=== PATIENT | female | born 1950 | race Caucasian/White ===

== ENCOUNTER 2021-01-29 09:41 | Inpatient (IN) | payer MEDICARE ==
[2021-01-29] MEDS ORDERED: NALOXONE 0.4 MG/ML 1 ML VIAL IV PRN ×2 (10:16→17:26)
--- NOTE | 2021-01-29 10:21 | ED ---
Recheck HPI - General Chief Complaint: Recheck/Abnormal Lab/Rx Stated Complaint: Abnormal labs Time Seen by Provider: 01/29/21 09:44 Source: patient, EMS, RN notes reviewed, old records reviewed Mode of arrival: EMS Limitations: no limitations - History of Present Illness Initial Comments: This is a 71-year-old female DF patient accepted in transfer for inpatient admission. Patient was told low sodium low magnesium potassium. Swallows monitored in attempted placed without significant success at [facility]. Patient presents to our ER for reevaluation. Patient has no new complaints noted states she was having chills and shakes prior in the day and mental presented her to [facility] in the first place. Currently no nausea vomiting or diarrhea MD Complaint: abnormal lab (Electrolyte abnormalities) -: unknown Returns Today for: Called Because of Abnormal Lab/Test Symptoms Since Prior Visit: worsening pain Context: called for abnormal lab result Associated Symptoms: none Treatments Prior to Arrival: other (No help with IV electronically replacement) - Related Data Allergies Allergy/AdvReac Type Severity Reaction Status Date / Time No Known Allergies Allergy Verified 01/29/21 09:57 Review of Systems ROS Statement: Those systems with pertinent positive or pertinent negative responses have been documented in the HPI. ROS Other: All systems not noted in ROS Statement are negative. Past Medical History Past Medical History: Hypertension, Osteoarthritis (OA) History of Any Multi-Drug Resistant Organisms: None Reported Additional Past Surgical History / Comment(s): Neck surgery 2016 Past Psychological History: Depression Smoking Status: Current every day smoker Past Alcohol Use History: Daily, Heavy General Exam General appearance: alert, in no apparent distress Head exam: Present: atraumatic, normocephalic, normal inspection Eye exam: Present: normal appearance, PERRL, EOMI. Absent: scleral icterus, conjunctival injection, periorbital swelling ENT exam: Present: normal exam, mucous membranes moist Neck exam: Present: normal inspection. Absent: tenderness, meningismus, lymphadenopathy Respiratory exam: Present: normal lung sounds bilaterally. Absent: respiratory distress, wheezes, rales, rhonchi, stridor Cardiovascular Exam: Present: regular rate, normal rhythm, normal heart sounds. Absent: systolic murmur, diastolic murmur, rubs, gallop, clicks GI/Abdominal exam: Present: soft, normal bowel sounds. Absent: distended, tenderness, guarding, rebound, rigid Extremities exam: Present: normal inspection, full ROM, normal capillary refill. Absent: tenderness, pedal edema, joint swelling, calf tenderness Back exam: Present: normal inspection Neurological exam: Present: alert, oriented X3, CN II-XII intact Psychiatric exam: Present: normal affect, normal mood Skin exam: Present: warm, dry, intact, normal color. Absent: rash Course Vital Signs 01/29/21 09:48 Temperature 99.4 F Pulse Rate 73 Respiratory 18 Rate Blood Pressure 127/73 O2 Sat by Pulse 96 Oximetry - Reevaluation(s) Reevaluation #1: 01/29/21 10:19 Medical record is reviewed 01/29/21 10:19 Transferring paperwork is been reviewed and I did speak with transferring physician Reevaluation #2: 01/29/21 10:19 Spoke with patient regarding our findings and plan, questions answered - Consultations Consultation #1: spoke w SOund ok for admission Disposition Clinical Impression: Hyponatremia, Weakness, Electrolyte abnormality, Hypomagnesemia, Hypokalemia Disposition: ADMITTED IP TO THIS HOSP Condition: Fair Is patient prescribed a controlled substance at d/c from ED?: No Referrals: Bry Smith DO [Primary Care Provider] - 1-2 days
[2021-01-29] MEDS: SODIUM CHLORIDE 0.9% 1,000 ML IV SCH ×2 (10:37→17:22)
[2021-01-29 10:46] LABS: Basophils % (A) 1 %; Eosinophils # (A) 0.1 k/uL (0-0.7); Eosinophils % (A) 2 %; HCT 37.1 % (34.0-46.0); HGB 12.6 gm/dL (11.4-16.0); Lymphocytes # (A) 1.8 k/uL (1.0-4.8); Lymphocytes % (A) 26 %; MCH 32.6 pg (25.0-35.0); MCV 95.8 fL (80.0-100.0); Mean Platelet Volume 7.9; Monocytes # (A) 0.5 k/uL (0-1.0); Monocytes % (A) 7 %; Neutrophils # (A) 4.4 k/uL (1.3-7.7); Neutrophils % (A) 64 %; Platelet Count 220 k/uL (150-450); RBC 3.87 m/uL (3.80-5.40); RDW 13.3 % (11.5-15.5); WBC 6.9 k/uL (3.8-10.6)
[2021-01-29 10:50] LABS: African American GFR (CKD) >90 (>60 ml/min/1.73 sqM); Anion Gap 11 mmol/L; Blood Urea Nitrogen 5 mg/dL (7-17); Carbon Dioxide 28 mmol/L (22-30); Chloride 86 mmol/L (98-107); Glucose 93 mg/dL (74-99); Magnesium 2.1 mg/dL (1.6-2.3); Non-African American GFR(CKD) 89 (>60 ml/min/1.73 sqM); Phosphorus 2.9 mg/dL (2.5-4.5); Potassium 3.4 mmol/L (3.5-5.1); Sodium 125 mmol/L (137-145)
--- NOTE | 2021-01-29 17:46 | P.HPIM ---
History of Present Illness H&P Date: 01/29/21 Chief Complaint: shaking 71-year-old female presented from an outside hospital at [place] for not feeling well, inability to eat or drink much, vomiting and diarrhea as well as abdominal bloating over the past couple of days. Patient states that last night she had a slight fever, was very shaky and could not get comfortable. She also reported some streaks of blood with her bowel movement which she thinks due to her hemorrhoids. No hematemesis. She denied having chest pain, shortness of breath. Patient states that 2 months ago she had a similar presentation and was diagnosed with bowel infection and according to her she was started on flagyl last by her primary care physician due to ''lingering bowel infection'' patient also stated that 2 months ago when she had the bowel infection she was told that she had low sodium low and potassium. Patient was given IV fluids at [facility] but without significant improvement in her sodium. During her ER stay she had a large dark and loose bowel movement according to the nursing report. Of note patient received her second dose of Covid vaccine 8 days ago. Labs at the outside ER showed sodium 122. Labs also showed hypokalemia with K at 3 and hypomagnesemia with magnesium at 1.5. Troponin, lactic acid, CRP, pro calcitonin were all negative. She also tested negative for influenza A and B an d Covid 19. She had computed tomography scan of the abdomen and pelvis that did not show any acute intra-abdominal process. In the emergency department repeat sodium level was 125, potassium 3.3. Patient is currently feeling better, no shaking and she does not feel nauseous. Patient presents to our ER for reevaluation. Patient has no new complaints noted states she was having chills and shakes prior in the day and mental presented her to [place] in the first place. Currently no nausea vomiting or diarrhea. Review of Systems Complete review of system performed, pertinent positives per HPI, otherwise negative Past Medical History Past Medical History: Hypertension, Osteoarthritis (OA) History of Any Multi-Drug Resistant Organisms: None Reported Additional Past Surgical History / Comment(s): Neck surgery 2016 Past Psychological History: Depression Smoking Status: Current every day smoker Past Alcohol Use History: Daily, Heavy Medications and Allergies Home Medications Medication Instructions Recorded Confirmed Type Clobeetasol 0.05% Solution 1 applic TOPICAL DAILY 01/29/21 01/29/21 History Hydrocortisone 2.5% Lotion 1 applic TOPICAL BID 01/29/21 01/29/21 History Ketoconazole [Ketoconazole 2% 1 applic TOPICAL Q3D 01/29/21 01/29/21 History Shampoo] L.acidoph,Paracasei, B.lactis 1 cap PO DAILY 01/29/21 01/29/21 History [Probiotic] Lisinopril-Hctz 20-12.5 mg 1 tab PO DAILY 01/29/21 01/29/21 History [Zestoretic 20-12.5] Multivitamins, Thera [Multivitamin 1 tab PO DAILY 01/29/21 01/29/21 History (formulary)] Nitroglycerin Oint [Nitro-Bid Oint] 1 inch RECTAL BID 01/29/21 01/29/21 History Potassium Chloride 10 meq PO BID 01/29/21 01/29/21 History Potassium Gluconate 99 mg PO DAILY 01/29/21 01/29/21 History Rosuvastatin [Crestor] 20 mg PO HS 01/29/21 01/29/21 History busPIRone HCl [Buspar] 10 mg PO BID 01/29/21 01/29/21 History metroNIDAZOLE [Flagyl] 500 mg PO BID 01/29/21 01/29/21 History Allergies Allergy/AdvReac Type Severity Reaction Status Date / Time No Known Allergies Allergy Verified 01/29/21 11:04 Physical Exam Vitals: Vital Signs Temp Pulse Resp BP Pulse Ox 01/29/21 15:18 86 18 130/83 95 01/29/21 09:48 99.4 F 73 18 127/73 96 Intake and Output 01/29/21 01/29/21 01/29/21 06:59 14:59 22:59 Other: Weight 66.678 kg Constitutional: No acute distress, conversant, pleasant Eyes:Anicteric sclerae, moist conjunctiva, no lid-lag, PERRLA, ENMT: Oropharynx clear, no erythema, exudates Neck: Supple, FROM, no masses, or JVD, No carotid bruits, No thyromegaly Lungs: Clear to auscultation, Clear to percussion, Normal respiratory effort, no accessory muscle use Cardiovascular: Heart regular in rate and rhythm, No murmurs, gallops, or rubs, No peripheral edema Abdominal: Soft, Nontender, no guarding, rebound or rigidity, Normoactive bowel sounds, No hepatomegaly, No splenomegaly, No palpable mass Skin: Normal temperature, tone, texture, turgor, no induration, No subcutaneous nodules, No rash, lesions, No ulcers Extremities: No digital cyanosis, No clubbing, Pedal pulses intact and symmetrical, Radial pulses intact and symmetrical, No calf tenderness Psychiatric: Alert and oriented to person, place and time, appropriate affect, intact judgement Neuro: Muscles Strength 5/5 in all 4 extremities, Sensation to light touch grossly present throughout, Cranial nerves II-XII grossly intact, no focal sensory deficits Results CBC & Chem 7: 01/29/21 10:31 01/29/21 10:31 Labs: Abnormal Lab Results - Last 24 Hours (Table) 01/29/21 Range/Units 10:31 Sodium 125 L (137-145) mmol/L Potassium 3.4 L (3.5-5.1) mmol/L Chloride 86 L (98-107) mmol/L BUN 5 L (7-17) mg/dL Assessment and Plan Plan: Acute hyponatremia Check plasma and urine osmolalities Check urine sodium IV fluids Hypokalemia and hypomagnesemia Replace and follow Acute gastroenteritis IV fluids as above Tylenol when necessary GI consult due to bleeding history Hypertension, HCTZ Continue lisinopril Anxiety and depression Continue buspirone Admitted to inpatient, expected length of stay more than 2 midnights
[2021-01-29] MEDS: lisinopriL 20 MG TAB PO SCH (18:46)
[2021-01-29] MEDS: ATORVASTATIN 40 MG TAB PO SCH (21:35)
[2021-01-29] MEDS: busPIRone HCl 10 MG TAB PO SCH (21:35)
[2021-01-29] MEDS: ZOLPIDEM 5 MG TAB PO SCH (21:36)
[2021-01-30] MEDS: SODIUM CHLORIDE 0.9% 1,000 ML IV SCH ×2 (04:30→12:45)
[2021-01-30 08:04] LABS: Basophils # (A) 0.1 k/uL (0-0.2); Basophils % (A) 1 %; Eosinophils # (A) 0.1 k/uL (0-0.7); Eosinophils % (A) 2 %; HCT 33.3 % (34.0-46.0); HGB 11.9 gm/dL (11.4-16.0); Lymphocytes # (A) 2.2 k/uL (1.0-4.8); Lymphocytes % (A) 41 %; MCH 34.1 pg (25.0-35.0); MCHC 35.7 g/dL (31.0-37.0); MCV 95.5 fL (80.0-100.0); Monocytes # (A) 0.5 k/uL (0-1.0); Monocytes % (A) 9 %; Neutrophils # (A) 2.4 k/uL (1.3-7.7); Neutrophils % (A) 45 %; Platelet Count 202 k/uL (150-450); RBC 3.49 m/uL (3.80-5.40); RDW 12.7 % (11.5-15.5); WBC 5.3 k/uL (3.8-10.6)
[2021-01-30 08:10] LABS: ALT 28 U/L (4-34); AST 35 U/L (14-36); African American GFR (CKD) >90 (>60 ml/min/1.73 sqM); Albumin 3.6 g/dL (3.5-5.0); Albumin/Globulin Ratio 1.6; Alkaline Phosphatase 53 U/L (38-126); Anion Gap 7 mmol/L; Blood Urea Nitrogen 8 mg/dL (7-17); Calcium 8.9 mg/dL (8.4-10.2); Carbon Dioxide 29 mmol/L (22-30); Chloride 93 mmol/L (98-107); Globulin 2.3 g/dL; Glucose 114 mg/dL (74-99); Magnesium 1.8 mg/dL (1.6-2.3); Non-African American GFR(CKD) 89 (>60 ml/min/1.73 sqM); Phosphorus 3.1 mg/dL (2.5-4.5); Potassium 3.7 mmol/L (3.5-5.1); Sodium 129 mmol/L (137-145); Total Bilirubin 0.7 mg/dL (0.2-1.3); Total Protein 5.9 g/dL (6.3-8.2)
[2021-01-30] MEDS: lisinopriL 20 MG TAB PO SCH (08:52)
[2021-01-30] MEDS: busPIRone HCl 10 MG TAB PO SCH ×2 (08:52→20:27)
[2021-01-30] MEDS: ACETAMINOPHEN TAB 325 MG TAB PO PRN (10:00)
--- NOTE | 2021-01-30 15:06 | P.PN ---
Subjective Progress Note Date: 01/30/21 Principal diagnosis: weakness and shaking Doing better today. She is feeling stronger. No pain or sob. Objective - Vital Signs Vital signs: Vital Signs Temp 98.0 F 01/30/21 12:32 Pulse 67 01/30/21 12:32 Resp 16 01/30/21 12:32 BP 131/79 01/30/21 12:32 Pulse Ox 97 01/30/21 12:32 Intake & Output 01/29/21 01/30/21 01/30/21 18:59 06:59 18:59 Weight 66.678 kg Other: # Voids 1 # Bowel Movements 1 - Exam Constitutional: No acute distress, conversant, pleasant Eyes:Anicteric sclerae, moist conjunctiva, no lid-lag, PERRLA, ENMT: Oropharynx clear, no erythema, exudates Neck: Supple, FROM, no masses, or JVD, No carotid bruits, No thyromegaly Lungs: Clear to auscultation, Clear to percussion, Normal respiratory effort, no accessory muscle use Cardiovascular: Heart regular in rate and rhythm, No murmurs, gallops, or rubs, No peripheral edema Abdominal: Soft, Nontender, no guarding, rebound or rigidity, Normoactive bowel sounds, No hepatomegaly, No splenomegaly, No palpable mass Skin: Normal temperature, tone, texture, turgor, no induration, No subcutaneous nodules, No rash, lesions, No ulcers Extremities: No digital cyanosis, No clubbing, Pedal pulses intact and symmetrical, Radial pulses intact and symmetrical, No calf tenderness Psychiatric: Alert and oriented to person, place and time, appropriate affect, intact judgement Neuro: Muscles Strength 5/5 in all 4 extremities, Sensation to light touch grossly present throughout, Cranial nerves II-XII grossly intact, no focal sensory deficits - Labs CBC & Chem 7: 01/30/21 07:13 01/30/21 07:13 Labs: Abnormal Lab Results - Last 24 Hours (Table) 01/29/21 01/30/21 01/30/21 Range/Units 10:31 07:13 07:13 RBC 3.49 L (3.80-5.40) m/uL Hct 33.3 L (34.0-46.0) % Sodium 129 L (137-145) mmol/L Chloride 93 L (98-107) mmol/L Glucose 114 H (74-99) mg/dL Osmolality 262 L (280-301) mosm/kg Total Protein 5.9 L (6.3-8.2) g/dL Assessment and Plan Plan: Acute hyponatremia likely sec to dehydration vs. HCTZ use Improved. Plasma and urine osmolalities not consistent with SIADH Continue IV fluids Hypokalemia and hypomagnesemia Replace and follow Acute gastroenteritis IV fluids as above Tylenol when necessary GI consult due to bleeding history Hypertension, Hold HCTZ due to above Continue lisinopril Anxiety and depression Continue buspirone Anticipated discharge tomorrow Disposition home.
[2021-01-30] MEDS: ATORVASTATIN 40 MG TAB PO SCH (20:27)
[2021-01-30] MEDS: ZOLPIDEM 5 MG TAB PO SCH (20:27)
[2021-01-31] MEDS: ACETAMINOPHEN TAB 325 MG TAB PO PRN (01:45)
[2021-01-31] MEDS: SODIUM CHLORIDE 0.9% 1,000 ML IV SCH (01:47)
[2021-01-31 06:51] LABS: Basophils % (A) 1 %; Eosinophils # (A) 0.2 k/uL (0-0.7); Eosinophils % (A) 3 %; HGB 12.2 gm/dL (11.4-16.0); Lymphocytes # (A) 2.1 k/uL (1.0-4.8); Lymphocytes % (A) 28 %; MCH 33.9 pg (25.0-35.0); MCHC 34.8 g/dL (31.0-37.0); MCV 97.4 fL (80.0-100.0); Mean Platelet Volume 7.9; Monocytes # (A) 0.4 k/uL (0-1.0); Monocytes % (A) 5 %; Neutrophils # (A) 4.5 k/uL (1.3-7.7); Neutrophils % (A) 61 %; Platelet Count 204 k/uL (150-450); RBC 3.59 m/uL (3.80-5.40); RDW 12.7 % (11.5-15.5); WBC 7.4 k/uL (3.8-10.6)
[2021-01-31 07:10] LABS: African American GFR (CKD) >90 (>60 ml/min/1.73 sqM); Anion Gap 9 mmol/L; Blood Urea Nitrogen 6 mg/dL (7-17); Calcium 9.2 mg/dL (8.4-10.2); Carbon Dioxide 26 mmol/L (22-30); Chloride 96 mmol/L (98-107); Glucose 114 mg/dL (74-99); Magnesium 1.7 mg/dL (1.6-2.3); Non-African American GFR(CKD) >90 (>60 ml/min/1.73 sqM); Phosphorus 3.1 mg/dL (2.5-4.5); Potassium 3.9 mmol/L (3.5-5.1); Sodium 131 mmol/L (137-145)
--- NOTE | 2021-01-31 07:25 | P.CONS ---
History of Present Illness - Reason for Consult Consult date: 01/30/21 blood per rectum, diarrhea Requesting physician: Yousuf Heart - Chief Complaint nausea, decreased oral intake, abdominal pain - History of Present Illness 71-year-old female medical history significant for hypertension, dyslipidemia, and osteoarthritis who presented to the hospital due to complaints of decreased oral intake and nausea as well as abdominal pain. Patient had reported decreased appetite and oral intake. Episodes of nausea. Patient reports that symptoms have not been good over the past few months. She does report that her peak having episodes of diarrhea approximate 4-5 times per day, but that diarrhea is improved and currently she is having approximately 3 bowel movements daily. She does report that at some point she had stool testing and was treated with Flagyl. She reports with the diarrhea she noted some intermittent bright red blood per rectum. She states that her primary care physician to set her up for outpatient evaluation but is unsure if this is with the surgical service or gastroenterology for further evaluation. The patient states that she has had a colonoscopy in the remote past. More recently she has undergone stool testing for screening for malignant neoplasm of the colon. She also reports a remote EGD in association with her colonoscopy in the past. She feels that intermittent rectal bleeding is secondary to hemorrhoidal disease. She denies any prior history of peptic ulcer disease and reports that she only uses Tylenol for pain.the patient was found to have a depressed sodium on presentation currently 129. Other laboratory evaluation significant for WBC 5.3, hemoglobin 11.9, platelet count 202,000 with total bilirubin 0.7, alkaline phosphatase 53, AST 35 and ALT 28. Review of Systems REVIEW OF SYSTEMS: CONSTITUTIONAL: Denies any fevers, chills, weight change or fatigue. CARDIOVASCULAR: Denies any chest pain, palpitations high or low blood pressures RESPIRATORY: Denies any shortness of breath, hemoptysis or cough. GENITOURINARY: No dysuria or hematuria. MUSCULOSKELETAL: No weakness reported. SKIN: Denies any new rashes or lesions, jaundice or pallor. PSYCHIATRIC: Denies any depression or anxiety. NEUROLOGY: Denies headache, denies any new focal deficits. EARS/NOSE/THROAT: No recent hearing change, congestion, nasal discharge or sore throat. EYES: No pain in eyes, discharge or change in vision. GASTROINTESTINAL: As per HPI. Past Medical History Past Medical History: Hypertension, Osteoarthritis (OA) History of Any Multi-Drug Resistant Organisms: None Reported Additional Past Surgical History / Comment(s): Neck surgery 2016 Past Anesthesia/Blood Transfusion Reactions: No Reported Reaction Past Psychological History: Depression Smoking Status: Current every day smoker Past Alcohol Use History: Daily, Heavy Additional History: family history: Reviewed with the patient noncontributory to current medical presentation. Medications and Allergies Home Medications Medication Instructions Recorded Confirmed Type Clobeetasol 0.05% Solution 1 applic TOPICAL DAILY 01/29/21 01/29/21 History Hydrocortisone 2.5% Lotion 1 applic TOPICAL BID 01/29/21 01/29/21 History Ketoconazole [Ketoconazole 2% 1 applic TOPICAL Q3D 01/29/21 01/29/21 History Shampoo] L.acidoph,Paracasei, B.lactis 1 cap PO DAILY 01/29/21 01/29/21 History [Probiotic] Lisinopril-Hctz 20-12.5 mg 1 tab PO DAILY 01/29/21 01/29/21 History [Zestoretic 20-12.5] Multivitamins, Thera [Multivitamin 1 tab PO DAILY 01/29/21 01/29/21 History (formulary)] Nitroglycerin Oint [Nitro-Bid Oint] 1 inch RECTAL BID 01/29/21 01/29/21 History Potassium Chloride 10 meq PO BID 01/29/21 01/29/21 History Potassium Gluconate 99 mg PO DAILY 01/29/21 01/29/21 History Rosuvastatin [Crestor] 20 mg PO HS 01/29/21 01/29/21 History busPIRone HCl [Buspar] 10 mg PO BID 01/29/21 01/29/21 History metroNIDAZOLE [Flagyl] 500 mg PO BID 01/29/21 01/29/21 History Allergies Allergy/AdvReac Type Severity Reaction Status Date / Time No Known Allergies Allergy Verified 01/29/21 11:04 Physical Exam Vitals: Vital Signs Temp Pulse Pulse Resp BP BP Pulse Ox 01/30/21 04:30 98.9 F 83 16 140/71 96 01/29/21 20:00 98.8 F 73 17 136/79 96 01/29/21 18:00 97.9 F 76 16 144/83 96 01/29/21 15:18 86 18 130/83 95 Intake and Output 01/29/21 01/30/21 01/30/21 22:59 06:59 14:59 Other: # Voids 1 1 # Bowel Movements 1 On physical examination, patient appears comfortable in no apparent distress. HEAD: Normocephalic, atraumatic. EYES: No scleral icterus. No conjunctival injection. MOUTH: No lesions, tongue midline. NECK: Trachea midline, no gross abnormalities. CHEST: Clear to auscultation with no wheezing or rhonchi appreciated. HEART: Regular rate and rhythm. ABDOMEN: Soft, obese. Bowel sounds are positive. No organomegaly. No guarding or rigidity. EXTREMITIES: No pedal edema. SKIN: No rashes, no jaundice. NEUROLOGIC: Alert and oriented x3. No focal deficits. Results CBC & Chem 7: 01/31/21 06:26 01/31/21 06:26 Labs: Abnormal Lab Results - Last 24 Hours (Table) 01/29/21 01/29/21 01/30/21 Range/Units 10:31 10:31 07:13 RBC 3.49 L (3.80-5.40) m/uL Hct 33.3 L (34.0-46.0) % Sodium 125 L (137-145) mmol/L Potassium 3.4 L (3.5-5.1) mmol/L Chloride 86 L (98-107) mmol/L BUN 5 L (7-17) mg/dL Glucose (74-99) mg/dL Osmolality 262 L (280-301) mosm/kg Total Protein (6.3-8.2) g/dL 01/30/21 Range/Units 07:13 RBC (3.80-5.40) m/uL Hct (34.0-46.0) % Sodium 129 L (137-145) mmol/L Potassium (3.5-5.1) mmol/L Chloride 93 L (98-107) mmol/L BUN (7-17) mg/dL Glucose 114 H (74-99) mg/dL Osmolality (280-301) mosm/kg Total Protein 5.9 L (6.3-8.2) g/dL Assessment and Plan (1) Diarrhea Narrative/Plan: 71-year-old female with multiple medical comorbidities presenting for a constellation of symptoms including nausea and decreased oral intake. Patient found to be severely hyponatremic on presentation with sodium currently at 129. Patient had been having some diarrhea over the past few months currently this is improved with approximately 3 looser bowel movements daily. She does report intermittent bright red blood per rectum in association with diarrhea and believes this is secondary to hemorrhoids. She is scheduled for outpatient evaluation locally in [place]. She denies any abdominal pain. She has previously had EGD and colonoscopy but this is more remote. Unclear etiology, may be postinfectious this patient does report stool studies previously and being treated with Flagyl, cannot rule out microscopic colitis or other etiology. Nausea and decreased oral intake likely related to hyponatremia. Current Visit: Yes Status: Acute Code(s): R19.7 - DIARRHEA, UNSPECIFIED SNOMED Code(s): 89508727 (2) Nausea Current Visit: Yes Status: Acute Code(s): R11.0 - NAUSEA SNOMED Code(s): 125395873 (3) Blood per rectum Current Visit: Yes Status: Acute Code(s): K62.5 - HEMORRHAGE OF ANUS AND RECTUM SNOMED Code(s): 30893976 Plan: supportive care Okay for diet as tolerated Stool studies ordered, if negative okay for antidiarrheal as needed for diarrhea Continue correction of sodium level Other medical management per primary team Patient's hemoglobin has remained stable and okay for continued evaluation of symptoms of diarrhea and blood per rectum in the outpatient setting as scheduled, as the patient reports she has been referred her locally in [place] for further evaluation Thank you for allowing us to participate in the care of the patient, okay for discharge when otherwise medically stable
[2021-01-31] MEDS: busPIRone HCl 10 MG TAB PO SCH (08:13)
[2021-01-31] MEDS: lisinopriL 20 MG TAB PO SCH (08:13)
[2021-01-31 12:04] VITALS: BP 157/76; PULSE 65; RESP 17; TEMP 98.3
--- NOTE | 2021-01-31 14:40 | P.DS ---
Providers Date of admission: 01/29/21 10:16 Expected date of discharge: 01/31/21 Attending physician: Yousuf Heart Consults: 01/29/21 17:51 Consult Physician Routine Consulting Provider: Tano Wood Consult Reason/Comments: gi bleeding Do you want consulting provider notified?: Yes Primary care physician: [facility] Course: 71-year-old female presented from an outside hospital at [place] for not feeling well, inability to eat or drink much, vomiting and diarrhea as well as abdominal bloating over the past couple of days. Associated symptoms include f laila and chills. Patient was feeling very shaky and could not get comfortable. She also reported some streaks of blood with her bowel movement which she thinks due to her hemorrhoids. No hematemesis. She denied having chest pain, shortness of breath. Patient states that 2 months ago she had a similar presentation and was diagnosed with bowel infection and according to her she was started on flagyl last by her primary care physician due to ''lingering bowel infection'' patient also stated that 2 months ago when she had the bowel infection she was told that she had low sodium low and potassium. Patient was given IV fluids at [facility] but without significant improvement in her sodium. During her ER stay she had a large dark and loose bowel movement according to the nursing report. Of note patient received her second dose of Covid vaccine 8 days ago. Labs at the outside ER showed sodium 122. Labs also showed hypokalemia with K at 3 and hypomagnesemia with magnesium at 1.5. Troponin, lactic acid, CRP, pro calcitonin were all negative. She also tested negative for influenza A and B and Covid 19. She had computed tomography scan of the abdomen and pelvis that did not show any acute intra-abdominal process. In the emergency department repeat sodium level was 125, potassium 3.3. Upon admission she was started on IV fluids, potassium and magnesium were replaced. Plasma and urine osmolalities were not consistent with SIADH. Dehydration was suspected as the cause for her symptoms. Patient is also taking HCTZ for blood pressure which would cause low electrolytes. HCTZ was discontinued upon discharge. Her symptoms improved. Diarrhea and vomiting resolved throughout the hospitalization. She did not have any fevers. She was also seen by GI due to some hematochezia which was thought to be secondary to hemorrhoids. No further workup by GI was advised as inpatient. Patient is currently stable for discharge. She will be discharged home in a stable condition. Patient Condition at Discharge: Fair Plan - Discharge Summary New Discharge Prescriptions: New lisinopriL [Zestril] 20 mg PO DAILY 30 Days #30 tab Continue Ketoconazole [Ketoconazole 2% Shampoo] 1 applic TOPICAL Q3D Hydrocortisone 2.5% Lotion 1 applic TOPICAL BID busPIRone HCl [Buspar] 10 mg PO BID Multivitamins, Thera [Multivitamin (formulary)] 1 tab PO DAILY Nitroglycerin Oint [Nitro-Bid Oint] 1 inch RECTAL BID Clobeetasol 0.05% Solution 1 applic TOPICAL DAILY Rosuvastatin [Crestor] 20 mg PO HS Potassium Gluconate 99 mg PO DAILY Potassium Chloride 10 meq PO BID L.acidoph,Paracasei, B.lactis [Probiotic] 1 cap PO DAILY Discontinued metroNIDAZOLE [Flagyl] 500 mg PO BID Lisinopril-Hctz 20-12.5 mg [Zestoretic 20-12.5] 1 tab PO DAILY Discharge Medication List Clobeetasol 0.05% Solution 1 applic TOPICAL DAILY 01/29/21 [History] Hydrocortisone 2.5% Lotion 1 applic TOPICAL BID 01/29/21 [History] Ketoconazole [Ketoconazole 2% Shampoo] 1 applic TOPICAL Q3D 01/29/21 [History] L.acidoph,Paracasei, B.lactis [Probiotic] 1 cap PO DAILY 01/29/21 [History] Multivitamins, Thera [Multivitamin (formulary)] 1 tab PO DAILY 01/29/21 [History] Nitroglycerin Oint [Nitro-Bid Oint] 1 inch RECTAL BID 01/29/21 [History] Potassium Chloride 10 meq PO BID 01/29/21 [History] Potassium Gluconate 99 mg PO DAILY 01/29/21 [History] Rosuvastatin [Crestor] 20 mg PO HS 01/29/21 [History] busPIRone HCl [Buspar] 10 mg PO BID 01/29/21 [History] lisinopriL [Zestril] 20 mg PO DAILY 30 Days #30 tab 01/31/21 [Rx] Follow up Appointment(s)/Referral(s): Nighat Galicia MD [STAFF PHYSICIAN] - As Needed Bry Smith DO [Primary Care Provider] - 1-2 days
--- NOTE | 2021-01-31 14:53 | P.PN ---
Subjective Progress Note Date: 01/31/21 Principal diagnosis: Abdominal pain, diarrhea There is a 71-year-old female patient who was transferred from [facility] for hyponatremia, nausea, and diarrhea with poor oral intake and abdominal pain. She states she has had frequent episodes of hyponatremia, every time she gets that she gets a decreased appetite, nausea, and diarrhea. She states she has not had any diarrhea since yesterday, actually today she states her stool was formed with some straining. She denies any blood in her stool or rectal bleeding. She denies any nausea or vomiting today. She is tolerating regular diet. Objective - Vital Signs Vital signs: Vital Signs Temp 98.5 F 01/31/21 05:00 Pulse 68 01/31/21 05:00 Resp 16 01/31/21 05:00 BP 168/90 01/31/21 05:00 Pulse Ox 96 01/31/21 05:00 Intake & Output 01/30/21 01/31/21 01/31/21 18:59 06:59 18:59 Intake Total 1800 Balance 1800 Intake: Intake, IV Titration 960 Amount Sodium Chloride 0.9% 1, 960 000 ml @ 80 mls/hr IV . [id number] JACK Rx#:[id number] Oral 840 Other: # Voids 2 2 # Bowel Movements 0 - Exam General appearance: The patient is alert, oriented, appears in no acute distress. HET: Head is normocephalic and atraumatic. Conjunctiva pink. Sclera anicteric. Neck: Supple without lymphadenopathy. Abdomen: Soft, nontender, nondistended with bowel sounds. No guarding or rigidity. Extremities: Normal skin color and turgor. No pedal edema Skin: No rashes, no jaundice Neurological: No focal deficits. Alert and oriented 3. - Labs CBC & Chem 7: 01/31/21 06:26 01/31/21 06:26 Labs: Abnormal Lab Results - Last 24 Hours (Table) 01/31/21 01/31/21 Range/Units 06:26 06:26 RBC 3.59 L (3.80-5.40) m/uL Sodium 131 L (137-145) mmol/L Chloride 96 L (98-107) mmol/L BUN 6 L (7-17) mg/dL Glucose 114 H (74-99) mg/dL Assessment and Plan (1) Diarrhea Narrative/Plan: 71-year-old female with multiple medical comorbidities presenting for a co nstellation of symptoms including nausea and decreased oral intake. Patient found to be severely hyponatremic on presentation with sodium currently at 129. Patient had been having some diarrhea over the past few months currently this is improved with approximately 3 looser bowel movements daily. She does report intermittent bright red blood per rectum in association with diarrhea and believes this is secondary to hemorrhoids. She is scheduled for outpatient evaluation locally in [place]. She denies any abdominal pain. She has previously had EGD and colonoscopy but this is more remote. Unclear etiology, may be postinfectious this patient does report stool studies previously and being treated with Flagyl, cannot rule out microscopic colitis or other etiology. Nausea and decreased oral intake likely related to hyponatremia. Patient has had no further diarrhea today. She is having formed stool, stool studies ordered and collected. Current Visit: Yes Status: Acute Code(s): R19.7 - DIARRHEA, UNSPECIFIED SNOMED Code(s): 50637578 (2) Blood per rectum Current Visit: Yes Status: Acute Code(s): K62.5 - HEMORRHAGE OF ANUS AND RECTUM SNOMED Code(s): 78002754 (3) Nausea Current Visit: Yes Status: Acute Code(s): R11.0 - NAUSEA SNOMED Code(s): 741492087 Plan: 1. Supportive care 2. Tinea diet is tolerated 3. Stool studies ordered 4. Continue correction of sodium level 5. Patient may be discharged home from a gastroenterology standpoint, discussed with patient to follow-up with gastroenterology as needed Thank you for this consultation. Dr. Sydni Galicia I agree with the dictator's note, documented as a scribe by Makayla Croft.
== END 2021-01-31 15:43 | disposition home or self-care (01) | DRG 641 ==
LOC: EC 09:41 → 5NMEDONC 10:16
PROVIDERS: ADMIT Internal Medicine; ATTEND Internal Medicine
DX: E86.0 Dehydration (principal); E83.42 Hypomagnesemia; E87.1 Hypo-osmolality and hyponatremia; I10 Essential (primary) hypertension; M19.90 Unspecified osteoarthritis, unspecified site; E87.6 Hypokalemia; F41.9 Anxiety disorder, unspecified; K52.9 Noninfective gastroenteritis and colitis, unspecified; F32.9 Major depressive disorder, single episode, unspecified; K64.9 Unspecified hemorrhoids; F17.200 Nicotine dependence, unspecified, uncomplicated; Z20.822 Contact with and (suspected) exposure to COVID-19; E78.5 Hyperlipidemia, unspecified
CPT/HCPCS: 36415; 80048; 80053; 83630; 83735; 83930; 83935; 84100; 84300; 85025; 87045; 87046; 87328; 87329; 99285

== ENCOUNTER 2024-04-01 16:48 | Inpatient (IN) | payer MEDICARE ==
[2024-04-01] MEDS ORDERED: NALOXONE 0.4 MG/ML 1 ML VIAL IV PRN (17:16)
--- NOTE | 2024-04-01 17:16 | ED ---
General Adult HPI - General Chief complaint: Chest Pain Stated complaint: Afib Time Seen by Provider: 04/01/24 16:50 Source: patient, RN/MD, EMS, RN notes reviewed, old records reviewed Mode of arrival: EMS Limitations: no limitations - History of Present Illness Initial comments: Patient is a 74-year-old female presenting to the emergency department as a transfer from [place] for syncope and A-fib. Patient does have history of A- fib. Patient states her heart rate has been high recently. Patient is on Eliquis at home secondary to atrial fibrillation. Patient denies chest pain. Patient states she just passed out for a short period of time and actually woke up before she completely fell. No injury. Reports reviewed from [facility]. - Related Data Home Medications Medication Instructions Recorded Confirmed Clobeetasol 0.05% Solution 1 applic TOPICAL DAILY 01/29/21 01/29/21 Hydrocortisone 2.5% Lotion 1 applic TOPICAL BID 01/29/21 01/29/21 Ketoconazole [Ketoconazole 2% 1 applic TOPICAL Q3D 01/29/21 01/29/21 Shampoo] L.acidoph,Paracasei, B.lactis 1 cap PO DAILY 01/29/21 01/29/21 [Probiotic] Multivitamins, Thera [Multivitamin 1 tab PO DAILY 01/29/21 01/29/21 (formulary)] Nitroglycerin Oint [Nitro-Bid Oint] 1 inch RECTAL BID 01/29/21 01/29/21 Potassium Chloride [Potassium 10 meq PO BID 01/29/21 01/29/21 Chloride ER] Potassium Gluconate [Potassium 99 mg PO DAILY 01/29/21 01/29/21 Gluconate ER] Rosuvastatin [Crestor] 20 mg PO HS 01/29/21 01/29/21 busPIRone HCl [Buspar] 10 mg PO BID 01/29/21 01/29/21 Previous Rx's Medication Instructions Recorded lisinopriL [Zestril] 20 mg PO DAILY 30 Days #30 tab 01/31/21 Allergies Allergy/AdvReac Type Severity Reaction Status Date / Time No Known Allergies Allergy Verified 01/29/21 11:04 Review of Systems ROS Statement: Those systems with pertinent positive or pertinent negative responses have been documented in the HPI. ROS Other: All systems not noted in ROS Statement are negative. Constitutional: Denies: fever Eyes: Denies: eye pain Respiratory: Denies: dyspnea Cardiovascular: Reports: palpitations. Denies: chest pain Endocrine: Denies: fatigue Past Medical History Past Medical History: Atrial Fibrillation, COPD, GERD/Reflux, GI Bleed, Hypertension, Osteoarthritis (OA) History of Any Multi-Drug Resistant Organisms: None Reported Additional Past Surgical History / Comment(s): Neck surgery 2016 Past Anesthesia/Blood Transfusion Reactions: No Reported Reaction Past Psychological History: Depression Smoking Status: Current every day smoker Past Alcohol Use History: Heavy Past Drug Use History: None Reported General Exam Limitations: no limitations General appearance: alert, in no apparent distress Head exam: Present: atraumatic Eye exam: Present: normal appearance, PERRL, EOMI Neck exam: Present: normal inspection Respiratory exam: Present: normal lung sounds bilaterally Cardiovascular Exam: Present: irregular rhythm GI/Abdominal exam: Present: soft. Absent: tenderness Extremities exam: Present: normal inspection. Absent: pedal edema, calf tenderness Neurological exam: Present: alert. Absent: motor sensory deficit Psychiatric exam: Present: normal affect, normal mood Skin exam: Present: normal color Course Vital Signs 04/01/24 04/01/24 16:55 17:07 Temperature 98.9 F Pulse Rate 79 Pulse Rate [ 85 Community Health Coordinator ] Respiratory 18 Rate Blood Pressure 118/78 O2 Sat by Pulse 98 Oximetry EKG Findings - EKG Results: EKG: interpreted by ERMD (Left axis. Low QRS voltage. Q wave V1 V2.), normal ST/T EKG shows: atrial fibrillation Medical Decision Making - Medical Decision Making Was pt. sent in by a medical professional or institution (, PA, ORGANIC LAB WORKER, urgent care, hospital, or longterm...) When possible be specific @ -Patient was sent in from [facility]. Did you speak to anyone other than the patient for history (EMS, parent, family, police, friend...)? What history was obtained from this source @ -I did speak with transferring physician Dr. Abel Did you review nursing and triage notes (agree or disagree)? Why? @ -I reviewed and agree with nursing and triage notes Were old charts reviewed (outside hosp., previous admission, EMS record, old EKG, old radiological studies, urgent care reports/EKG's, longterm records)? Report findings @ -Chart reviewed from [facility] Differential Diagnosis (chest pain, altered mental status, abdominal pain women, abdominal pain men, vaginal bleeding, weakness, fever, dyspnea, syncope, headache, dizziness, GI bleed, back pain, seizure, CVA, palpatations, mental health, musculoskeletal)? @ -Differential Syncope: Valvular disease, hypertrophic cardiomyopathy, pulmonary embolism, tamponade, tachycardia, bradycardia, OH, hypovolemia, hemorrhage, dissection, anemia, intracranial hemorrhage, seizure, hypoglycemia, carbon monoxide poisoning, this is not meant to be an all-inclusive list. EKG interpreted by me (3pts min.). @ -As above X-rays interpreted by me (1pt min.). @ -None done CT interpreted by me (1pt min.). @ -None done U/S interpreted by me (1pt. min.). @ -None done What testing was considered but not performed or refused? (CT, X-rays, U/S, labs)? Why? @ -Labs will be reordered secondary to history of electrolyte abnormality What meds were considered but not given or refused? Why? @ -None Did you discuss the management of the patient with other professionals (professionals i.e. , PA, ORGANIC LAB WORKER, lab, RT, psych nurse, social service worker, firearms inspector, teacher, aoc operations intelligence officer, case finisher)? Give summary @ -Case was discussed with Dr. cummings who will admit covering hospital call. Was smoking cessation discussed for >3mins.? @ -No Was critical care preformed (if so, how long)? @ -No Were there social determinants of health that impacted care today? How? (Homelessness, low income, unemployed, alcoholism, drug addiction, transportation, low edu. Level, literacy, decrease access to med. care, m[facility], rehab)? @ -No Was there de-escalation of care discussed even if they declined (Discuss DNR or withdrawal of care, Hospice)? DNR status @ -No What co-morbidities impacted this encounter? (DM, HTN, Smoking, COPD, CAD, Cancer, CVA, ARF, Chemo, Hep., AIDS, mental health diagnosis, sleep apnea, morbid obesity)? @ -None Was patient admitted / discharged? Hospital course, mention meds given and route, prescriptions, significant lab abnormalities, going to OR and other pertinent info. @ -Patient is updated on results and plan. Patient was transferred secondary to syncope and A-fib for cardiology care. Admission orders written. Cardiology will be placed on consult Undiagnosed new problem with uncertain prognosis? @ -No Drug Therapy requiring intensive monitoring for toxicity (Heparin, Nitro, Insulin, Cardizem)? @ -Patient is on Cardizem drip and this will be continued Were any procedures done? @ -No Diagnosis/symptom? @ -Syncope, A-fib with RVR Acute, or Chronic, or Acute on Chronic? @ -Acute, acute on chronic Uncomplicated (without systemic symptoms) or Complicated (systemic symptoms)? @ -Complicated with electrolyte abnormality Side effects of treatment? @ -No Exacerbation, Progression, or Severe Exacerbation? @ -No Poses a threat to life or bodily function? How? (Chest pain, [place], OH, pneumonia, PE, COPD, DKA, ARF, appy, cholecystitis, CVA, Diverticulitis, Homicidal, Suicidal, threat to staff... and all critical care pts) @ -No Disposition Clinical Impression: Syncope, Atrial fibrillation with RVR Disposition: ADMITTED IP TO THIS HOSP Is patient prescribed a controlled substance at d/c from ED?: No Referrals: Parviz Porter MD [Primary Care Provider] - 1-2 days Time of Disposition: 17:16
[2024-04-01] MEDS: DILTIAZEM 125 MG in SODIUM CHLORIDE 0.9% 100 ML IV SCH (17:29)
[2024-04-01] MEDS: SODIUM CHLORIDE 0.9% 1,000 ML IV SCH (17:30)
[2024-04-01 17:50] LABS: Basophils # (A) 0.1 k/uL (0-0.2); Basophils % (A) 2 %; Eosinophils # (A) 0.1 k/uL (0-0.7); Eosinophils % (A) 1 %; HCT 40.2 % (34.0-46.0); HGB 13.6 gm/dL (11.4-16.0); Lymphocytes # (A) 2.2 k/uL (1.0-4.8); Lymphocytes % (A) 46 %; MCH 33.4 pg (25.0-35.0); MCHC 33.9 g/dL (31.0-37.0); MCV 98.4 fL (80.0-100.0); Monocytes # (A) 0.5 k/uL (0-1.0); Monocytes % (A) 11 %; Neutrophils # (A) 1.7 k/uL (1.3-7.7); Neutrophils % (A) 37 %; Platelet Count 173 k/uL (150-450); RBC 4.08 m/uL (3.80-5.40); RDW 12.9 % (11.5-15.5); WBC 4.7 k/uL (3.8-10.6)
[2024-04-01 18:07] LABS: ALT 95 U/L (4-34); AST 102 U/L (14-36); African American GFR (CKD) 37 (>60 ml/min/1.73 sqM); Albumin 4.1 g/dL (3.5-5.0); Alkaline Phosphatase 70 U/L (38-126); Anion Gap 7 mmol/L; Blood Urea Nitrogen 21 mg/dL (7-17); Calcium 8.8 mg/dL (8.4-10.2); Carbon Dioxide 32 mmol/L (22-30); Chloride 87 mmol/L (98-107); Glucose 110 mg/dL (74-99); Non-African American GFR(CKD) 32 (>60 ml/min/1.73 sqM); Potassium 3.4 mmol/L (3.5-5.1); Sodium 126 mmol/L (137-145); Total Bilirubin 0.6 mg/dL (0.2-1.3); Total Protein 6.2 g/dL (6.3-8.2)
[2024-04-01] MEDS: FAMOTIDINE 20 MG TAB PO SCH (21:56)
[2024-04-01] MEDS: APIXABAN 5 MG TAB PO SCH (21:56)
[2024-04-01] MEDS: ATORVASTATIN 40 MG TAB PO SCH (21:57)
[2024-04-01] MEDS: MIRTAZAPINE 15 MG TAB PO SCH (21:57)
[2024-04-01] MEDS: carvediloL 12.5 MG TAB PO SCH (22:42)
[2024-04-02] MEDS: ACETAMINOPHEN TAB 325 MG TAB PO PRN (04:40)
[2024-04-02 08:08] LABS: Basophils % (A) 1 %; Eosinophils # (A) 0.1 k/uL (0-0.7); Eosinophils % (A) 2 %; HCT 39.5 % (34.0-46.0); HGB 13.1 gm/dL (11.4-16.0); Lymphocytes # (A) 1.9 k/uL (1.0-4.8); Lymphocytes % (A) 40 %; MCH 33.2 pg (25.0-35.0); MCHC 33.2 g/dL (31.0-37.0); MCV 99.7 fL (80.0-100.0); Mean Platelet Volume 9.3; Monocytes # (A) 0.5 k/uL (0-1.0); Monocytes % (A) 11 %; Neutrophils % (A) 42 %; Platelet Count 176 k/uL (150-450); RBC 3.96 m/uL (3.80-5.40); RDW 13.1 % (11.5-15.5); WBC 4.7 k/uL (3.8-10.6)
[2024-04-02] MEDS: SYMBICORT 80-4.5 MCG INHALER INHALATION SCH (08:22)
[2024-04-02] MEDS: IPRATROPIUM 0.5 MG/2.5 ML NEBU INHALATION SCH (08:22)
[2024-04-02 08:30] LABS: ALT 92 U/L (4-34); AST 90 U/L (14-36); African American GFR (CKD) 31 (>60 ml/min/1.73 sqM); Albumin 4.1 g/dL (3.5-5.0); Alkaline Phosphatase 67 U/L (38-126); Anion Gap 8 mmol/L; Blood Urea Nitrogen 23 mg/dL (7-17); Calcium 9.1 mg/dL (8.4-10.2); Carbon Dioxide 29 mmol/L (22-30); Chloride 91 mmol/L (98-107); Glucose 118 mg/dL (74-99); Non-African American GFR(CKD) 27 (>60 ml/min/1.73 sqM); Potassium 3.3 mmol/L (3.5-5.1); Sodium 128 mmol/L (137-145); Total Bilirubin 0.6 mg/dL (0.2-1.3); Total Protein 6.2 g/dL (6.3-8.2)
[2024-04-02] MEDS ORDERED: TRIAMTERENE-HCTZ 37.5-25MG 1 EACH CAP PO SCH (09:00)
[2024-04-02] MEDS ORDERED: POTASSIUM CHLORIDE ER 10 MEQ TAB.ER.PRT PO SCH (09:00)
[2024-04-02] MEDS: MAGNESIUM OXIDE 400 MG TAB PO SCH (09:10)
[2024-04-02] MEDS: PANTOPRAZOLE 40 MG TABLET PO SCH (09:10)
[2024-04-02] MEDS: FAMOTIDINE 20 MG TAB PO SCH (10:03)
--- NOTE | 2024-04-02 11:25 | P.HPIM ---
History of Present Illness H&P Date: 04/02/24 History of present illness; patient is a 74-year-old lady with past medical history significant for hyperlipidemia, atrial fibrillation who is a transfer from [facility] for a syncopal episode. Patient was initially presented to [facility] for syncopal episode. Patient stated that that she was all right when she woke up in the morning and had her coffee and as she was walking in her house she passed out, patient states that she only passed out for a short time. There was no complaint of any chest pain or shortness of prior to this episode. There was no complaint of palpitations. Patient history of A-fib and takes Eliquis at home. Patient did stated that for the last few days she has been feeling tired and got short of breath on exertion. Because of the syncopal episode, patient presented to the ER of [facility] and from there she was transferred to [facility] Initial lab work done in the ER showed WBC 4.7, hemoglobin 13.6, platelet count 173, sodium 126, potassium 3.4, anion gap 7, BUN 21, creatinine 1.57, glucose 110, AST 102, ALT 95 troponin 0.012, protein 6.2, albumin 4.1 EKG done in the ER showed heart rate of 85, no ST segment elevation or d epression seen, no T-wave inversions seen. Patient admitted to internal medicine service REVIEW OF SYSTEMS: CONSTITUTIONAL: No fever, no malaise, no fatigue. HEENT: No recent visual problems or hearing problems. Denied any sore throat. CARDIOVASCULAR: As mentioned HPI PULMONARY: As mentioned HPI GASTROINTESTINAL: No diarrhea, no nausea, no vomiting, no abdominal pain. NEUROLOGICAL: No headaches, no weakness, no numbness. HEMATOLOGICAL: Denies any bleeding or petechiae. GENITOURINARY: Denies any burning micturition, frequency, or urgency. MUSCULOSKELETAL/RHEUMATOLOGICAL: Denies any joint pain, swelling, or any muscle pain. ENDOCRINE: Denies any polyuria or polydipsia. The rest of the 14-point review of systems is negative. PHYSICAL EXAMINATION: GENERAL: The patient is alert and oriented x3, not in any acute distress. Well developed, well nourished. HEENT: Pupils are round and equally reacting to light. EOMI. No scleral icterus. No conjunctival pallor. Normocephalic, atraumatic. No pharyngeal erythema. No thyromegaly. CARDIOVASCULAR: S1 and S2 present. No murmurs, rubs, or gallops. PULMONARY: Chest is clear to auscultation, no wheezing or crackles. ABDOMEN: Soft, nontender, nondistended, normoactive bowel sounds. No palpable organomegaly. MUSCULOSKELETAL: No joint swelling or deformity. EXTREMITIES: No cyanosis, clubbing, or pedal edema. NEUROLOGICAL: Gross neurological examination did not reveal any focal deficits. SKIN: No rashes. Assessment and plan Syncope Chronic atrial fibrillation Bradycardia Hyponatremia Hypokalemia ANGIE Elevated LFTs Hypertension Hyper lipidemia Monitor vital signs Monitor CBC Monitor CMP Continue telemetry monitoring Trend troponin Ordered 2D echo Continue Eliquis Resume Coreg but hold for heart rate less than 60 Resume home meds Consult cardiology Labs and medication were reviewed.. Continue same treatment. Continue with symptomatic treatment. Resume home medication. Monitor labs and vitals. DVT and GI prophylaxis. Further recommendations as per clinical course of the patient Dictation was produced using [employer] dictation software. please excuse any grammatical, word or spelling errors. Past Medical History Past Medical History: Atrial Fibrillation, COPD, GERD/Reflux, GI Bleed, Hypertension, Osteoarthritis (OA) History of Any Multi-Drug Resistant Organisms: None Reported Additional Past Surgical History / Comment(s): Neck surgery 2016 Past Anesthesia/Blood Transfusion Reactions: No Reported Reaction Past Psychological History: Depression Smoking Status: Current every day smoker Past Alcohol Use History: Heavy Past Drug Use History: None Reported Medications and Allergies Home Medications Medication Instructions Recorded Confirmed Type Rosuvastatin [Crestor] 20 mg PO HS 01/29/21 04/01/24 History Albuterol Sulfate [Albuterol 1 - 2 puff PO RT-Q6H PRN 04/01/24 04/01/24 History Sulfate Hfa] Apixaban [Eliquis] 5 mg PO BID 04/01/24 04/01/24 History Famotidine [Pepcid] 20 mg PO BID 04/01/24 04/01/24 History Fluticasone/Umeclidin/Vilanter 1 puff INHALATION RT-DAILY 04/01/24 04/01/24 History [Trelegy Ellipta 100-62.5-25] Magnesium Oxide [Mag-Ox] 400 mg PO DAILY 04/01/24 04/01/24 History Mirtazapine [Remeron] 15 mg PO HS 04/01/24 04/01/24 History Pantoprazole Sodium [Protonix] 40 mg PO DAILY 04/01/24 04/01/24 History Potassium Chloride 10 meq PO DAILY 04/01/24 04/01/24 History Triamterene/Hydrochlorothiazid 1 tab PO DAILY 04/01/24 04/01/24 History [Triamterene-Hctz 37.5-25 mg Tb] carvediloL [Coreg] 25 mg PO BID 04/01/24 04/01/24 History Allergies Allergy/AdvReac Type Severity Reaction Status Date / Time No Known Allergies Allergy Verified 04/01/24 17:33 Physical Exam Vitals: Vital Signs Temp Pulse Pulse Resp BP Pulse Ox 04/02/24 09:05 97.9 F 56 L 18 131/56 97 04/02/24 08:33 66 04/02/24 08:24 64 04/02/24 04:00 57 L 16 125/75 95 04/02/24 03:00 60 17 100/48 95 04/02/24 01:00 62 18 120/61 95 04/02/24 00:00 55 L 18 109/66 95 04/01/24 23:00 58 L 17 125/72 95 04/01/24 22:00 55 L 18 114/90 95 04/01/24 21:59 52 L 16 94/52 97 04/01/24 20:00 62 16 90/46 97 04/01/24 18:15 97.7 F 101 H 16 75/47 96 04/01/24 17:35 84 16 99/84 97 04/01/24 17:07 85 04/01/24 16:55 98.9 F 79 18 118/78 98 Intake and Output 04/01/24 04/02/24 04/02/24 22:59 06:59 14:59 Intake Total 3.917 Balance 3.917 Intake: Intake, IV Titration 3.917 Amount Diltiazem 125 mg In 3.917 Sodium Chloride 0.9% 100 ml @ 5 MG/HR 5 mls/hr IV .Q24H [facility] Rx#:[id number] Other: Weight 70.307 kg Results CBC & Chem 7: 04/02/24 07:40 04/02/24 07:40 Labs: Abnormal Lab Results - Last 24 Hours (Table) 04/01/24 04/02/24 Range/Units 17:34 07:40 Sodium 126 L 128 L (137-145) mmol/L Potassium 3.4 L 3.3 L (3.5-5.1) mmol/L Chloride 87 L 91 L (98-107) mmol/L Carbon Dioxide 32 H (22-30) mmol/L BUN 21 H 23 H (7-17) mg/dL Creatinine 1.57 H 1.79 H (0.52-1.04) mg/dL Glucose 110 H 118 H (74-99) mg/dL AST 102 H 90 H (14-36) U/L ALT 95 H 92 H (4-34) U/L Total Protein 6.2 L 6.2 L (6.3-8.2) g/dL
--- NOTE | 2024-04-02 12:09 | P.CRDCN ---
History of Present Illness History of present illness: HISTORY OF PRESENT ILLNESS: This is a 74-year-old female with a past medical history significant for atrial fibrillation, hypertension, and hyperlipidemia. Patient does not follow with a director of blood. We have been asked to see the patient in consultation for atrial fibrillation and syncope. Patient examined at the bedside in the emergency room. Patient states yesterday she was drinking coffee in the morning and began to feel lightheaded. She also reports having nausea. She states that she got up and began walking and then had a syncopal episode. She does report having intermittent palpitations. At the time of examination, she denies any chest pain or pressure. She denies any shortness of breath. She does report that in January she had a change in her blood pressure medications by her doctor and [place]. She cannot remember the name of the medication that she was on but she was started on Triamterene-HCTZ at that time as she was having lower extremity edema. She states that she has also been on lisinopril and losartan many years ago. DIAGNOSTICS: - EKG reveals atrial fibrillation. Repeat EKG reveals sinus mechanism.. - Laboratory data: WBC 4.7. Hemoglobin 13.1. Platelet count 176. Sodium 128. Potassium 3.3. BUN 23. Creatinine 1.79. Troponin negative x 2 - Current home cardiac medications include Eliquis 5 mg twice a day, rosuvastatin 20 mg at night, carvedilol 25 mg twice a day. - No previous echocardiogram available in EMR for review REVIEW OF SYSTEMS: At the time of my exam: CONSTITUTIONAL: Denies fever or chills. HEENT: Denies blurred vision, vision changes, or eye pain. Denies hemoptysis CARDIOVASCULAR: Denies chest pain. Denies orthopnea. Denies PND. Denies palpitations RESPIRATORY: Denies shortness of breath. GASTROINTESTINAL: Denies abdominal pain. Denies nausea or vomiting. HEMATOLOGIC: Denies bleeding disorders. GENITOURINARY: Denies any blood in urine. SKIN: Denies pruitis. Denies rash. PHYSICAL EXAM: VITAL SIGNS: Reviewed. GENERAL: Well-developed in no acute distress. HEENT: Head is normocephalic. Pupils are equal, round. Sclerae anicteric. Mucous membranes of the mouth are moist. Neck supple. No JVD or thyromegaly LUNGS: Respirations even and unlabored. Lungs essentially clear to auscultation bilaterally. HEART: Regular rate and rhythm. S1 and S2 heard. ABDOMEN: Soft. Nondistended. Nontender. EXTREMITIES: Normal range of motion. No clubbing or cyanosis. Peripheral pulses intact. No lower extremity edema NEUROLOGIC: Awake and alert. Oriented x 3. ASSESSMENT: Lightheadedness with syncope Paroxysmal atrial fibrillation Acute kidney injury Hyponatremia Hypertension Hyperlipidemia PLAN: Obtain 2D echo to assess cardiac structure and function Check orthostatic blood pressures Check TSH Discontinue IV Cardizem Continue current dose of metoprolol Continue anticoagulation with Eliquis Discontinue Triamterene-HCTZ due to hyponatremia Continue to monitor blood pressures. If elevated, patient will need to be resumed on an MARIS/ARB tomorrow Further recommendations pending patient course Nurse practitioner note has been reviewed by physician. Signing provider agrees with the documented findings, assessment, and plan of care documented by BULLET CHARGING MACHINE OPERATOR as a scribe. Past Medical History Past Medical History: Atrial Fibrillation, COPD, GERD/Reflux, GI Bleed, Hyperte nsion, Osteoarthritis (OA) History of Any Multi-Drug Resistant Organisms: None Reported Additional Past Surgical History / Comment(s): Neck surgery 2016 Past Anesthesia/Blood Transfusion Reactions: No Reported Reaction Past Psychological History: Depression Smoking Status: Current every day smoker Past Alcohol Use History: Heavy Past Drug Use History: None Reported Medications and Allergies Home Medications Medication Instructions Recorded Confirmed Type Rosuvastatin [Crestor] 20 mg PO HS 01/29/21 04/01/24 History Albuterol Sulfate [Albuterol 1 - 2 puff PO RT-Q6H PRN 04/01/24 04/01/24 History Sulfate Hfa] Apixaban [Eliquis] 5 mg PO BID 04/01/24 04/01/24 History Famotidine [Pepcid] 20 mg PO BID 04/01/24 04/01/24 History Fluticasone/Umeclidin/Vilanter 1 puff INHALATION RT-DAILY 04/01/24 04/01/24 History [Trelegy Ellipta 100-62.5-25] Magnesium Oxide [Mag-Ox] 400 mg PO DAILY 04/01/24 04/01/24 History Mirtazapine [Remeron] 15 mg PO HS 04/01/24 04/01/24 History Pantoprazole Sodium [Protonix] 40 mg PO DAILY 04/01/24 04/01/24 History Potassium Chloride 10 meq PO DAILY 04/01/24 04/01/24 History Triamterene/Hydrochlorothiazid 1 tab PO DAILY 04/01/24 04/01/24 History [Triamterene-Hctz 37.5-25 mg Tb] carvediloL [Coreg] 25 mg PO BID 04/01/24 04/01/24 History Allergies Allergy/AdvReac Type Severity Reaction Status Date / Time No Known Allergies Allergy Verified 04/01/24 17:33 Physical Exam Vitals: Vital Signs Temp Pulse Pulse Resp BP Pulse Ox 04/02/24 04:00 57 L 16 125/75 95 04/02/24 03:00 60 17 100/48 95 04/02/24 01:00 62 18 120/61 95 04/02/24 00:00 55 L 18 109/66 95 04/01/24 23:00 58 L 17 125/72 95 04/01/24 22:00 55 L 18 114/90 95 04/01/24 21:59 52 L 16 94/52 97 04/01/24 20:00 62 16 90/46 97 04/01/24 18:15 97.7 F 101 H 16 75/47 96 04/01/24 17:35 84 16 99/84 97 04/01/24 17:07 85 04/01/24 16:55 98.9 F 79 18 118/78 98 Intake and Output 04/01/24 04/02/24 04/02/24 22:59 06:59 14:59 Intake Total 3.917 Balance 3.917 Intake: Intake, IV Titration 3.917 Amount Diltiazem 125 mg In 3.917 Sodium Chloride 0.9% 100 ml @ 5 MG/HR 5 mls/hr IV .Q24H [facility] Rx#:[id number] Other: Weight 70.307 kg Results 04/02/24 07:40 04/02/24 07:40 Cardiac Enzymes 04/01/24 04/01/24 04/01/24 Range/Units 17:34 17:34 20:41 AST 102 H (14-36) U/L Troponin I <0.012 <0.012 (0.000-0.034) ng/mL CBC 04/01/24 Range/Units 17:34 WBC 4.7 (3.8-10.6) k/uL RBC 4.08 (3.80-5.40) m/uL Hgb 13.6 (11.4-16.0) gm/dL Hct 40.2 (34.0-46.0) % Plt Count 173 (150-450) k/uL Comprehensive Metabolic Panel 04/01/24 Range/Units 17:34 Sodium 126 L (137-145) mmol/L Potassium 3.4 L (3.5-5.1) mmol/L Chloride 87 L (98-107) mmol/L Carbon Dioxide 32 H (22-30) mmol/L BUN 21 H (7-17) mg/dL Creatinine 1.57 H (0.52-1.04) mg/dL Glucose 110 H (74-99) mg/dL Calcium 8.8 (8.4-10.2) mg/dL AST 102 H (14-36) U/L ALT 95 H (4-34) U/L Alkaline Phosphatase 70 (38-126) U/L Total Protein 6.2 L (6.3-8.2) g/dL Albumin 4.1 (3.5-5.0) g/dL Current Medications Generic Name Dose Route Start Last Admin Trade Name Freq PRN Reason Stop Dose Admin Acetaminophen 650 mg 04/01/24 17:16 04/02/24 04:40 Acetaminophen Tab 325 Mg Tab PO 650 mg Q6HR PRN Administration Mild Pain or Fever > 100.5 Apixaban 5 mg 04/01/24 21:00 04/01/24 21:56 Apixaban 5 Mg Tab PO 5 mg BID JACK Administration Protocol Atorvastatin Calcium 40 mg 04/01/24 21:00 04/01/24 21:57 Atorvastatin 40 Mg Tab PO 40 mg HS JACK Administration Budesonide/Formoterol Fumarate 2 puff 04/02/24 08:00 Symbicort 80-4.5 Mcg Inhaler INHALATION RT-BID JACK Carvedilol 25 mg 04/01/24 21:00 04/01/24 22:42 Carvedilol 12.5 Mg Tab PO Not Given BID-W/MEALS JACK Famotidine 20 mg 04/01/24 21:00 04/01/24 21:56 Famotidine 20 Mg Tab PO 20 mg BID JACK Administration Diltiazem HCl 125 mg/ Sodium 125 mls @ 5 mls/hr 04/01/24 17:15 04/01/24 18:16 Chloride IV 0 mg/hr .Q24H JACK 0 mls/hr Infusion 5 MG/HR Sodium Chloride 1,000 mls @ 75 mls/hr 04/01/24 17:30 04/01/24 17:30 Saline 0.9% IV 75 mls/hr .[id number] JACK Administration Ipratropium [place] 0.5 mg 04/02/24 08:00 Ipratropium 0.5 Mg/2.5 Ml Nebu INHALATION RT-QID JACK Magnesium Oxide 400 mg 04/02/24 09:00 Magnesium Oxide 400 Mg Tab PO DAILY JACK Mirtazapine 15 mg 04/01/24 21:00 04/01/24 21:57 Mirtazapine 15 Mg Tab PO 15 mg HS JACK Administration Naloxone HCl 0.2 mg 04/01/24 17:16 Naloxone 0.4 Mg/Ml 1 Ml Vial IV Q2M PRN Opioid Reversal Pantoprazole Sodium 40 mg 04/02/24 09:00 Pantoprazole 40 Mg Tablet PO DAILY JACK Potassium Chloride 10 meq 04/02/24 09:00 Potassium Chloride Er 10 Meq Tab.Er.Prt PO DAILY JACK Triamterene/Hydrochlorothiazide 1 each 04/02/24 09:00 Triamterene-Hctz 37.5-25mg 1 Each Cap PO DAILY JACK Intake and Output 04/01/24 04/02/24 04/02/24 22:59 06:59 14:59 Intake Total 3.917 Balance 3.917 Intake: Intake, IV Titration 3.917 Amount Diltiazem 125 mg In 3.917 Sodium Chloride 0.9% 100 ml @ 5 MG/HR 5 mls/hr IV .Q24H [facility] Rx#:[id number] Other: Weight 70.307 kg 04/01/24 17:34 04/01/24 17:34
--- NOTE | 2024-04-02 16:58 | CA ---
Transthoracic Echo Report Name: Rosa Isela Marroquin Age: 74 Gender: F : 1950 Exam Date: 04/02/2024 14:24 Exam Location: [facility] Ht (in): 62 Wt (lb): 155 Ordering Physician: Emi Walker Attending/Referring Phys: [id number], Aaron Block Bolter Mule Operator Eloise Dallas RDCS Procedure CPT: Indications: LV function, AF Cardiac Hx: Technical Quality: Fair Contrast 1: Total Dose (mL): Contrast 2: Total Dose (mL): MEASUREMENTS (Male / Female) Normal Values 2D ECHO LV Diastolic Diameter PLAX 3.9 cm 4.2 - 5.9 / 3.9 - 5.3 cm LV Systolic Diameter PLAX 2.6 cm IVS Diastolic Thickness 0.9 cm 0.6 - 1.0 / 0.6 - 0.9 cm LVPW Diastolic Thickness 1.0 cm 0.6 - 1.0 / 0.6 - 0.9 cm LV Relative Wall Thickness 0.5 RV Internal Dim ED PLAX 2.8 cm LA Systolic Diameter LX 3.3 cm 3.0 - 4.0 / 2.7 - 3.8 cm LV Diastolic Volume MOD BP 62.6 cm??? 67 - 155 / 56 - 104 cm??? LV Systolic Volume MOD BP 28.7 cm??? 22 - 58 / 19 - 49 cm??? LV Ejection Fraction MOD BP 54.1 % >= 55 % LV Cardiac Index MOD BP 1030.9 cm???/min???m??? LV Diastolic Volume MOD 4C 62.6 cm??? LV Systolic Volume MOD 4C 26.9 cm??? LV Ejection Fraction MOD 4C 57.0 % LV Cardiac Index MOD 4C 1085.0 cm???/min???m??? LV Diastolic Length 4C 6.6 cm LV Systolic Length 4C 5.3 cm LV Diastolic Volume MOD 2C 63.2 cm??? LV Systolic Volume MOD 2C 29.9 cm??? LV Ejection Fraction MOD 2C 52.7 % LV Cardiac Index MOD 2C 1014.2 cm???/min???m??? LV Diastolic Length 2C 6.6 cm LV Systolic Length 2C 5.6 cm LA Volume 50.9 cm??? 18 - 58 / 22 - 52 cm??? LA Volume Index 28.7 cm???/m??? 16 - 28 cm???/m??? M-MODE Aortic Root Diameter MM 2.7 cm AV Cusp Separation MM 1.6 cm DOPPLER AV Peak Velocity 119.1 cm/s AV Peak Gradient 5.7 mmHg MV Area PHT 3.3 cm??? MV Deceleration Time 269.2 ms LV E' Lateral Velocity 7.0 cm/s LV E' Septal Velocity 6.0 cm/s TR Peak Velocity 280.8 cm/s TR Peak Gradient 31.5 mmHg Right Ventricular Systolic Press 36.5 mmHg FINDINGS Left Ventricle Left ventricular ejection fraction is estimated at 50-55 %. Left ventricular cavity size normal. Mildly decreased left ventricular ejection fraction. No obvious regional wall motion abnormalities. Right Ventricle Normal right ventricular size. Mild pulmonary hypertension. Right Atrium Normal right atrial size. No right atrial thrombus or mass seen. Left Atrium Normal left atrial size. No left atrial thrombus or mass present. Mitral Valve Structurally normal mitral valve. No mitral stenosis. No evidence for mitral valve prolapse. Trace to mild mitral regurgitation. Aortic Valve Trileaflet aortic valve. Thickened aortic valve without stenosis. Tricuspid Valve Structurally normal tricuspid valve. [id number] tricuspid regurgitation. Pulmonic Valve Pulmonic valve not well visualized. Pericardium No pericardial or pleural effusion. Aorta Normal size aortic root and proximal ascending aorta. CONCLUSIONS Left ventricular ejection fraction is estimated at 50-55 %. No obvious regional wall motion abnormalities. Normal RV size and function Mild pulmonary hypertension. RVSP 36 mmHg No significant left-sided valvular dysfunction. Moderate TR Previewed by: Dr Lopez Andre (Electronically Signed) Final Date: 02 Apr 2024 16:57
[2024-04-02 20:15] LABS: T4, Free (Free Thyroxine) 1.47 ng/dL (0.78-2.19)
[2024-04-02] MEDS: MELATONIN 5 MG TABLET PO SCH (20:46)
[2024-04-03 09:45] VITALS: TEMP 97.8
[2024-04-03] MEDS: lisinopriL 5 MG TAB PO SCH (10:29)
[2024-04-03 11:28] VITALS: BP 137/67; RESP 15
[2024-04-03 12:18] VITALS: PULSE 61
--- NOTE | 2024-04-03 13:01 | P.DS ---
Providers Date of admission: 04/03/24 09:57 Expected date of discharge: 04/03/24 Attending physician: Linda Henson Consults: 04/01/24 17:16 Consult Physician Urgent Consulting Provider: Josemanuel Moscoso Consult Reason/Comments: Syncope, A-fib with RVR Do you want consulting provider notified?: Yes Primary care physician: Parviz [facility] Course: Discharge diagnoses; Syncope Chronic atrial fibrillation Bradycardia Hyponatremia Hypokalemia ANGIE Elevated LFTs Hypertension Hyper lipidemia Hospital course; patient is a 74-year-old lady with past medical history significant for hyperlipidemia, atrial fibrillation who is a transfer from [facility] for a syncopal episode. Patient was initially presented to [facility] for syncopal episode. Patient stated that that she was all right when she woke up in the morning and had her coffee and as she was walking in her house she passed out, patient states that she only passed out for a short time. There was no complaint of any chest pain or shortness of prior to this episode. There was no complaint of palpitations. Patient history of A-fib and takes Eliquis at home. Patient did stated that for the last few days she has been feeling tired and got short of breath on exertion. Because of the syncopal episode, patient presented to the ER of [facility] and from there she was transferred to [facility] Initial lab work done in the ER showed WBC 4.7, hemoglobin 13.6, platelet count 173, sodium 126, potassium 3.4, anion gap 7, BUN 21, creatinine 1.57, glucose 110, AST 102, ALT 95 troponin 0.012, protein 6.2, albumin 4.1 EKG done in the ER showed heart rate of 85, no ST segment elevation or depression seen, no T-wave inversions seen. Patient admitted to internal medicine service 04/03. Patient seen and examined. Patient was evaluated by cardiology, they recommended discontinuing triamterene, HCTZ and added lisinopril. While in the hospital, patient is doing much better, patient bradycardia improved, her heart rates goes up to 70s on ambulation. Patient's renal also improved to 128, patient keen to be discharged home. Outpatient follow-up with cardiology PHYSICAL EXAMINATION: GENERAL: The patient is alert and oriented x3, not in any acute distress. Well developed, well nourished. HEENT: Pupils are round and equally reacting to light. EOMI. No scleral icterus. No conjunctival pallor. Normocephalic, atraumatic. No pharyngeal erythema. No thyromegaly. CARDIOVASCULAR: S1 and S2 present. No murmurs, rubs, or gallops. PULMONARY: Chest is clear to auscultation, no wheezing or crackles. ABDOMEN: Soft, nontender, nondistended, normoactive bowel sounds. No palpable organomegaly. MUSCULOSKELETAL: No joint swelling or deformity. EXTREMITIES: No cyanosis, clubbing, or pedal edema. NEUROLOGICAL: Gross neurological examination did not reveal any focal deficits. SKIN: No rashes. Dictation was produced using [employer] dictation software. please excuse any grammatical, word or spelling errors. Patient Condition at Discharge: Good Plan - Discharge Summary Discharge Rx Participant: No New Discharge Prescriptions: New lisinopriL [Zestril] 5 mg PO DAILY #90 tab Continue carvediloL [Coreg] 25 mg PO BID Pantoprazole Sodium [Protonix] 40 mg PO DAILY Famotidine [Pepcid] 20 mg PO BID Rosuvastatin [Crestor] 20 mg PO HS Mirtazapine [Remeron] 15 mg PO HS Apixaban [Eliquis] 5 mg PO BID Magnesium Oxide [Mag-Ox] 400 mg PO DAILY Albuterol Sulfate [Albuterol Sulfate Hfa] 1 - 2 puff PO RT-Q6H PRN PRN Reason: Shortness Of Breath Fluticasone/Umeclidin/Vilanter [Trelegy Ellipta 100-62.5-25] 1 puff INHALATION RT-DAILY Discontinued Triamterene/Hydrochlorothiazid [Triamterene-Hctz 37.5-25 mg Tb] 1 tab PO DAILY Potassium Chloride 10 meq PO DAILY Discharge Medication List Rosuvastatin [Crestor] 20 mg PO HS 01/29/21 [History] Albuterol Sulfate [Albuterol Sulfate Hfa] 1 - 2 puff PO RT-Q6H PRN 04/01/24 [History] Apixaban [Eliquis] 5 mg PO BID 04/01/24 [History] Famotidine [Pepcid] 20 mg PO BID 04/01/24 [History] Fluticasone/Umeclidin/Vilanter [Trelegy Ellipta 100-62.5-25] 1 puff INHALATION RT-DAILY 04/01/24 [History] Magnesium Oxide [Mag-Ox] 400 mg PO DAILY 04/01/24 [History] Mirtazapine [Remeron] 15 mg PO HS 04/01/24 [History] Pantoprazole Sodium [Protonix] 40 mg PO DAILY 04/01/24 [History] carvediloL [Coreg] 25 mg PO BID 04/01/24 [History] lisinopriL [Zestril] 5 mg PO DAILY #90 tab 04/03/24 [Rx] Follow up Appointment(s)/Referral(s): Neri Jacobson MD [STAFF PHYSICIAN] - 2 Weeks (Triamterene-hydrochlorothiazide stop Start lisinopril 5 mg p.o. daily Continue carvedilol 25 mg twice daily Continue rosuvastatin Continue Eliquis 5 mg twice daily) Parviz Porter MD [Primary Care Provider] - 1-2 days Discharge Disposition: HOME SELF-CARE
--- NOTE | 2024-04-03 15:38 | P.PN ---
Subjective Patient is doing well. She has not had any further episodes of dizziness and presyncope or chest pain or shortness of breath She is back in sinus rhythm Denies any chest discomfort dizziness or lightheadedness On examination blood pressure 137/67 mmHg pulse rate in the 70s No JVD Heart sounds are normal and regular Breath sounds are clear 2D echo Doppler study shows normal LV cavity size with mildly reduced LV systolic function of the lower limits of normal 50 to 55% Impression Paroxysmal atrial fibrillation with RVR Hyponatremia on triamterene-hydrochlorothiazide History of hypertension History of dyslipidemia This is the first diagnosis of paroxysmal atrial fibrillation with RVR Plan Continue carvedilol 25 mg twice daily Continue Eliquis 5 mg twice daily Add Zestril 5 mg daily at noon time May go home today and follow-up with Dr. Jacobson in about 2 weeks Further evaluation as an outpatient with ischemia workup, blood pressure management, continuation of Eliquis and rhythm control of atrial fibrillation Objective - Vital Signs Vital signs: Vital Signs Temp 97.8 F 04/03/24 09:41 Pulse 61 04/03/24 12:21 Resp 15 04/03/24 11:16 BP 137/67 04/03/24 11:16 Pulse Ox 96 04/03/24 11:16 FiO2 Intake & Output 04/02/24 04/03/24 04/03/24 18:59 06:59 18:59 Intake Total 722 Balance 722 Weight 70.307 kg Intake: IV 10 Invasive Line 3 10 Oral 712 Other: Voiding Method Toilet Toilet # Voids 1 - Labs CBC & Chem 7: 04/02/24 07:40 04/02/24 07:40 Labs: Abnormal Lab Results - Last 24 Hours (Table) 04/02/24 Range/Units 07:40 TSH 5.230 H (0.465-4.680) mIU/L
== END 2024-04-03 15:08 | disposition home or self-care (01) | DRG 309 ==
LOC: EC 16:48 → 3SCARD 17:17 → OBSVTOIN 04-03 09:57
PROVIDERS: ADMIT Internal Medicine; ATTEND Internal Medicine
DX: I48.0 Paroxysmal atrial fibrillation (principal); E87.1 Hypo-osmolality and hyponatremia; N17.9 Acute kidney failure, unspecified; R00.1 Bradycardia, unspecified; R74.01 Elevation of levels of liver transaminase levels; F32.A Depression, unspecified; I48.20 Chronic atrial fibrillation, unspecified; J44.9 Chronic obstructive pulmonary disease, unspecified; I08.1 Rheumatic disorders of both mitral and tricuspid valves; T58.91XA Toxic effect of carbon monoxide from unspecified source, accidental (unintentional), initial encounter; F17.210 Nicotine dependence, cigarettes, uncomplicated; I10 Essential (primary) hypertension; R55 Syncope and collapse; E78.5 Hyperlipidemia, unspecified; Z79.01 Long term (current) use of anticoagulants; M19.90 Unspecified osteoarthritis, unspecified site; Z79.899 Other long term (current) drug therapy; X58.XXXA Exposure to other specified factors, initial encounter; Z87.19 Personal history of other diseases of the digestive system
CPT/HCPCS: 36415; 80053; 84439; 84443; 84484; 85025; 93005; 93306; 94640; 96365; 96366; 99285